=== PATIENT | female | born 1970 | race Caucasian/White ===

== ENCOUNTER 2017-11-02 13:57 | Outpatient (CLI) | payer BC | END 2017-11-02 13:58 | disposition home or self-care (01) | LOC: BICMAMMO 13:57 | PROVIDERS: ATTEND Specialist | DX: Z12.31 Encounter for screening mammogram for malignant neoplasm of breast (principal) | CPT/HCPCS: 77063; 77067 ==

== ENCOUNTER 2019-02-20 08:53 | Outpatient (CLI) | payer BC ==
--- NOTE | 2019-02-20 11:12 | CT ---
CT ABDOMEN AND PELVIS WITH IV CONTRAST: HISTORY: Hypertension. Elevated metanephrines. FINDINGS: The lung bases are unremarkable. The liver demonstrates diffusely decreased attenuation compared to the spleen consistent with fatty infiltration. No hepatic mass or abnormal biliary ductal dilatation is seen. No calcified gallstones are noted. The spleen, pancreas, adrenal glands, and right kidney are normal. There is a tiny low-density lesion in the left kidney, likely a cyst. No free air, free fluid, or lymphadenopathy is noted in the abdomen or pelvis. There are vascular ca lcifications without evidence of aneurysmal dilatation of the abdominal aorta. There are postop erickson ges of hysterectomy. There is colonic diverticulosis without diverticulitis. There are mild degener ative changes in the spine. There is a dorsal stimulator device in the right upper gluteal region. IMPRESSION: 1. Fatty liver. 2. Normal CT appearance of the adrenal glands. 3. Colonic diverticulosis. 4. Probable tiny left renal cyst. POS: [facility]
== END 2019-02-20 08:54 | disposition home or self-care (01) ==
LOC: SCSCT 08:53
PROVIDERS: ATTEND Specialist
DX: R63.5 Abnormal weight gain (principal); R94.4 Abnormal results of kidney function studies; K76.0 Fatty (change of) liver, not elsewhere classified; K57.30 Diverticulosis of large intestine without perforation or abscess without bleeding
CPT/HCPCS: 74177

== ENCOUNTER 2021-07-25 13:13 | Outpatient (CLI) | payer OTHER, MEDICARE | END 2021-07-25 13:14 | disposition home or self-care (01) | LOC: BICMAMMO 13:13 | PROVIDERS: ATTEND Specialist | DX: N63.31 Unspecified lump in axillary tail of the right breast (principal) | CPT/HCPCS: 77066; G0279 ==

== ENCOUNTER 2021-08-08 11:19 | Outpatient (CLI) | payer OTHER, MEDICARE ==
[2021-08-08] MEDS ORDERED: Iopamidol 370 76% 100 ML VIAL ONE (11:42)
== END 2021-08-08 11:20 | disposition home or self-care (01) ==
LOC: CT 11:19
PROVIDERS: ATTEND Specialist
DX: K80.50 Calculus of bile duct without cholangitis or cholecystitis without obstruction (principal); R10.9 Unspecified abdominal pain
CPT/HCPCS: 74170; 82565

== ENCOUNTER 2023-08-20 09:38 | Outpatient (CLI) | payer OTHER, MEDICARE | END 2023-08-20 09:39 | disposition home or self-care (01) | LOC: BICMAMMO 09:38 | PROVIDERS: ATTEND Specialist | DX: Z12.31 Encounter for screening mammogram for malignant neoplasm of breast (principal); N64.89 Other specified disorders of breast | CPT/HCPCS: 77063; 77067 ==

== ENCOUNTER 2023-08-23 08:34 | Outpatient (CLI) | payer OTHER, MEDICARE | END 2023-08-23 08:35 | disposition home or self-care (01) | LOC: BICMAMMO 08:34 | PROVIDERS: ATTEND Specialist | DX: N64.89 Other specified disorders of breast (principal) | CPT/HCPCS: G0279 ==

== ENCOUNTER 2025-01-09 12:02 | Outpatient (CLI) | payer OTHER, MEDICARE | END 2025-01-09 12:03 | disposition home or self-care (01) | LOC: BICMAMMO 12:02 | PROVIDERS: ATTEND Specialist | DX: Z12.31 Encounter for screening mammogram for malignant neoplasm of breast (principal); M81.0 Age-related osteoporosis without current pathological fracture; M85.89 Other specified disorders of bone density and structure, multiple sites | CPT/HCPCS: 77063; 77067; 77080 ==